=== PATIENT | male | born 1965 | race Caucasian/White ===

== ENCOUNTER 2022-10-04 20:36 | Emergency (ER) | payer OTHER ==
[~2022-10-04] VITALS: Ht 177.8 cm; Wt 94.5 kg
[~2022-10-04 20:36] MED LIST: CIPRO500 MG OR; TYLENOL # 31 TAB OR; ZESTRIL2.5 MG OR
[2022-10-04 21:38] VITALS: BP 187/100
[2022-10-04 21:45] VITALS: BP 169/97
[2022-10-04 22:01] VITALS: BP 167/89
[2022-10-04 22:15] VITALS: BP 157/95
[2022-10-04 22:31] VITALS: BP 133/69
[2022-10-04 22:45] VITALS: BP 145/86
[2022-10-05 01:31] VITALS: BP 104/80
[2022-10-05 03:40] VITALS: BP 104/80
== END 2022-10-05 03:40 | disposition designated cancer center or children's hospital (05) | DRG 563 ==
LOC: ED 20:36
PROC: 0RSXXZZ Reposition Left Finger Phalangeal Joint, External Approach (ICD-10-PCS; principal; 2022-10-04)
DX: S63.271A Dislocation of unspecified interphalangeal joint of left index finger, initial encounter (principal); W18.39XA Other fall on same level, initial encounter; F32.A Depression, unspecified